=== PATIENT | male | born 1990 | race Caucasian/White ===

== ENCOUNTER 2018-12-28 11:39 | Emergency (ER) | payer OTHER ==
[~2018-12-28] VITALS: Ht 172.7 cm; Wt 103.4 kg
[2018-12-28 11:51] VITALS: Ht 172.7 cm; Wt 103.4 kg
[2018-12-28 13:46] VITALS: BP 137/84
== END 2018-12-28 13:46 | disposition home or self-care (01) ==
LOC: ED 11:39
DX: S62.663A Nondisplaced fracture of distal phalanx of left middle finger, initial encounter for closed fracture (principal); S61.313A Laceration without foreign body of left middle finger with damage to nail, initial encounter; W22.8XXA Striking against or struck by other objects, initial encounter; Y93.89 Activity, other specified; Y92.89 Other specified places as the place of occurrence of the external cause; Y99.8 Other external cause status
CPT/HCPCS: 90715; J2001; Q0092

== ENCOUNTER 2018-12-30 08:56 | Emergency (ER) | payer OTHER ==
[~2018-12-30] VITALS: Ht 180.3 cm; Wt 103.1 kg
[2018-12-30 09:09] VITALS: Ht 180.3 cm; Wt 103.1 kg
[2018-12-30 09:48] VITALS: BP 12/92
== END 2018-12-30 09:48 | disposition home or self-care (01) ==
LOC: ED 08:56
DX: Z48.01 Encounter for change or removal of surgical wound dressing (principal)

== ENCOUNTER 2019-01-06 11:50 | Emergency (ER) | payer OTHER ==
[~2019-01-06] VITALS: Ht 177.8 cm; Wt 101.2 kg
[2019-01-06 12:00] VITALS: BP 121/74; Ht 177.8 cm; Wt 101.2 kg
== END 2019-01-06 12:20 | disposition home or self-care (01) ==
LOC: ED 11:50
DX: S61.213D Laceration without foreign body of left middle finger without damage to nail, subsequent encounter (principal); X58.XXXD Exposure to other specified factors, subsequent encounter

== ENCOUNTER 2020-12-06 23:26 | Emergency (ER) | payer OTHER ==
[~2020-12-06] VITALS: Ht 182.9 cm; Wt 108.0 kg
[2020-12-06 23:46] VITALS: Ht 182.9 cm; Wt 108.0 kg
[2020-12-07] MEDS ORDERED: HYDROCODONE BIT1 T51 PO (01:17)
[2020-12-07] MEDS ORDERED: MOT600 PO (01:17)
[2020-12-07 01:28] VITALS: BP 155/105
[2020-12-07] MEDS ORDERED: ACETAMINOPHEN-H1 TA1 PO (02:21)
== END 2020-12-07 01:28 | disposition home or self-care (01) ==
LOC: ED 23:26
DX: G89.29 Other chronic pain (principal); M54.5 Low back pain; M25.561 Pain in right knee; M25.562 Pain in left knee
CPT/HCPCS: J1885